=== PATIENT | female | born 1990 | race Caucasian/White ===

== ENCOUNTER 2018-09-07 14:45 | Emergency (ER) | payer OTHER ==
[2018-09-07 14:51] VITALS: BP 150/80; PULSE 111; TEMP 98.7; BMI 25.4
--- NOTE | 2018-09-07 14:51 | PDOC ---
Rapid Medical Evaluation Time Seen by Provider: 09/07/18 14:48 Medical Evaluation: 09/07/18 14:48 I have performed a brief in-person evaluation of this patient. The patient presents with a chief complaint of: 4wks vaginal bleeding with right pelvic pain. LMP 07/29 Pertinent physical exam findings: Abd SNTND. Hall Coordinator-deferred I have ordered the following: labs, urine, TVUS The patient will proceed to the ED for further evaluation. Discharge Disposition - Diagnosis Vaginal bleeding affecting early - Referrals Referrals: Marycarmen Lopez [Primary Care Provider] - - Patient Instructions - Post Discharge Activity
--- NOTE | 2018-09-07 15:20 | PDOC ---
History of Present Illness - General Chief Complaint: Vaginal Bleeding Stated Complaint: VAGINAL BLEEDING,4 WEEKS PREG Time Seen by Provider: 09/07/18 14:48 History Source: Patient Exam Limitations: No Limitations - History of Present Illness Travel History: No Initial Comments: 09/07/18 16:16 Patient came for evaluation of abdominal cramping 2 days and some vaginal bleeding that started this morning. States has gone through 2 small pads with bright red blood but denies any clots, any tissue-like substance. , States last menstrual periods July 29 and was confirmed 2 weeks ago.t had a visit . Denies fever, any problems with bowel, or bladder, is first preg and planned Timing/Duration: reports: getting worse Quality: reports: mild, moderate Abdominal Pain Onset Location: reports: suprapubic, generalized abdomen Pain Radiation: reports: no radiation Past History - Travel Traveled outside of the country in the last 30 days: No Close contact w/someone who was outside of country & ill: No - Past Medical History Allergies/Adverse Reactions: Allergies Allergy/AdvReac Type Severity Reaction Status Date / Time No Known Allergies Allergy Verified 09/07/18 14:51 Home Medications: Ambulatory Orders NK [No Known Home Medication] 09/07/18 COPD: No - Suicide/Smoking/Psychosocial Hx Smoking History: Never smoked Review of Systems - Review of Systems Able to Perform ROS?: Yes Is the patient limited Haitian proficient: Yes Constitutional: Yes: Symptoms Reported, See HPI, Malaise. No: Fever, Loss of Appetite HEENTM: Yes: See HPI. No: Symptoms Reported Respiratory: No: Symptoms reported Cardiac (ROS): No: Symptoms Reported ABD/GI: Yes: Symptoms Reported, Nausea, Abdominal cramping Integumentary: No: Symptoms Reported Neurological: Yes: Symptoms reported, See HPI All Other Systems: Reviewed and Negative *Physical Exam - Vital Signs Last Vital Signs Temp Pulse Resp BP Pulse Ox 98.7 F 111 H 18 150/80 99 09/07/18 14:49 09/07/18 14:49 09/07/18 14:49 09/07/18 14:49 09/07/18 14:49 - Physical Exam General Appearance: Yes: Nourished, Appropriately Dressed, Apparent Distress, Mild Distress HEENT: positive: KADY, Normal ENT Inspection, TMs Normal, Pharynx Normal, Rhinorrhea Neck: positive: Supple. negative: Tender Respiratory/Chest: positive: Lungs Clear, Normal Breath Sounds Gastrointestinal/Abdominal: positive: Tender, Soft. negative: Distended, Guarding, Rebound Musculoskeletal: positive: Normal Inspection. negative: CVA Tenderness Extremity: positive: Normal Capillary Refill, Normal Inspection, Normal Range of Motion Integumentary: positive: Dry, Warm, Pale Neurologic: positive: supervisor porcelain department II-XII NML intact, Fully Oriented, Alert, Normal Mood/ Affect, Normal Response, Motor Strength 5/5 Moderate Sedation - Procedure Monitoring Vital Signs: Procedure Monitoring Vital Signs Temperature 98.7 F 09/07/18 14:49 Pulse Rate 111 H 09/07/18 14:49 Respiratory Rate 18 09/07/18 14:49 Blood Pressure 150/80 09/07/18 14:49 O2 Sat by Pulse Oximetry (%) 99 09/07/18 14:49 ED Treatment Course - LABORATORY CBC & Chemistry Diagram: 09/07/18 15:32 09/07/18 15:32 Progress Note - Progress Note Progress Note: ultrasound does not reveal any uterine evidence of , no free flui, no fallopian tube or ovary is Beta hCG 42. Discussed with patient that either confirmed with reported blood work 3 weeks ago is now miscarried or test was inaccurate. Patient has appointment with plant guide tomorrow and will follow-upwith their recommendation *DC/Admit/Observation/Transfer Diagnosis at time of Disposition: Vaginal bleeding affecting early - Discharge Dispostion Disposition: HOME Condition at time of disposition: Stable Decision to Admit order: No - Referrals Referrals: Marycarmen Lopez [Primary Care Provider] - - Patient Instructions Printed Discharge Instructions: DI for Vaginal Bleeding Additional Instructions: Rest, drink lots of fluids: Teas, water, soups Tylenol for fever and pain you may need to have repeated labs an to verify any early Followup with private physician in one to 2 days as needed Return to emergency department for worsened symptoms, fevers, dehydration - Post Discharge Activity Forms/Work/School Notes: Back to Work
[2018-09-07 15:38] LABS: BASO % 0.3 % (0-2.0); EOS % 0.9 % (0-4.5); HEMATOCRIT 40.7 % (32.4-45.2); LYMPH % 24.6 % (8-40); MCH 29.1 pg (25.7-33.7); MCHC 31.9 g/dl (32.0-36.0); MONO % 5.4 % (3.8-10.2); NEUT % 68.8 % (42.8-82.8); PLATELET COUNT 314 K/MM3 (134-434); RBC 4.48 M/mm3 (3.60-5.2); RDW 13.7 % (11.6-15.6); WHITE BLOOD COUNT 9.9 K/mm3 (4.0-10.0)
[2018-09-07 15:40] LABS: URINE APPEARANCE CLOUDY; URINE BILIRUBIN NEGATIVE (<2.0 mg/dL); URINE COLOR YELLOW; URINE GLUCOSE (UA) NEGATIVE (NEGATIVE); URINE KETONE NEGATIVE (NEGATIVE); URINE LEUK ESTERASE NEGATIVE (NEGATIVE); URINE NITRITE NEGATIVE (NEGATIVE); URINE PROTEIN 1+ (NEGATIVE); URINE UROBILINOGEN NEGATIVE mg/dL (0.2-1.0)
[2018-09-07 15:46] LABS: EPI CELLS RARE /HPF (FEW); URINE MUCUS RARE
[2018-09-07 16:06] LABS: ANION GAP 5 MMOL/L (8-16); BLOOD UREA NITROGEN 11 mg/dL (7-18); CALCIUM 8.8 mg/dL (8.5-10.1); CHLORIDE 104 mmol/L (98-107); CO2 29 mmol/L (21-32); CREATININE 0.6 mg/dL (0.55-1.3); GLUCOSE,RANDOM 122 mg/dL (74-106); POTASSIUM 3.8 mmol/L (3.5-5.1); SODIUM 139 mmol/L (136-145)
== END 2018-09-07 16:53 | disposition home or self-care (01) ==
LOC: JER 14:45 → JERFT 14:45
DX: O26.891 Other specified pregnancy related conditions, first trimester (principal); O20.8 Other hemorrhage in early pregnancy; Z3A.01 Less than 8 weeks gestation of pregnancy
CPT/HCPCS: 36415; 76817-TC; 80048; 81003; 81015; 84702; 85025; 86850; 86900; 86901; 87086; 99282-25

== ENCOUNTER 2019-04-23 11:11 | Emergency (ER) | payer OTHER ==
[2019-04-23 11:18] VITALS: TEMP 98.5; BMI 27.3
[2019-04-23] MEDS ORDERED: ACETAMINOPHEN 500 MG TABLET (FP) PO ONE (11:46)
[2019-04-23] MEDS ORDERED: ACETAMINOPHEN 325 MG TABLET (FP) ONE (11:54)
[2019-04-23 12:31] LABS: BASO % 0.5 % (0-2.0); EOS % 0.4 % (0-4.5); HEMATOCRIT 36.4 % (32.4-45.2); HEMOGLOBIN 12.6 GM/dL (10.7-15.3); LYMPH % 19.5 % (8-40); MCH 30.9 pg (25.7-33.7); MCHC 34.5 g/dl (32.0-36.0); MEAN CELL VOLUME 89.4 fl (80-96); MEAN PLT VOLUME 7.2 fl (7.5-11.1); MONO % 4.5 % (3.8-10.2); NEUT % 75.1 % (42.8-82.8); RBC 4.07 M/mm3 (3.60-5.2); RDW 14.3 % (11.6-15.6); WHITE BLOOD COUNT 10.7 K/mm3 (4.0-10.0)
[2019-04-23 12:55] LABS: PLATELET COUNT 327 K/MM3 (134-434)
[2019-04-23 13:09] LABS: BILIRUBIN,TOTAL 0.5 mg/dL (0.2-1); BLOOD UREA NITROGEN 10.9 mg/dL (7-18); CALCIUM 8.8 mg/dL (8.5-10.1); CREATININE 0.6 mg/dL (0.55-1.3); POTASSIUM 3.9 mmol/L (3.5-5.1); TOT PROT 7.4 g/dl (6.4-8.2)
--- NOTE | 2019-04-23 13:10 | PDOC ---
History of Present Illness - General Chief Complaint: Pain Stated Complaint: ABD PAIN Time Seen by Provider: 04/23/19 11:34 History Source: Patient Exam Limitations: No Limitations - History of Present Illness Travel History: No Initial Comments: 04/23/19 12:10 28-year-old female approximately 6 weeks presents the ED with complaints of left lower abdominal pain over her ovary for the past 2 days without urinary complaints, fever, chills, nausea, back pain or vaginal discharge. Patient states has not seen AIR BRAKES INSPECTOR for this decided come to the ER today for further evaluation. Timing/Duration: reports: constant Quality: reports: moderate, cramping Abdominal Pain Onset Location: reports: suprapubic Pain Radiation: reports: no radiation Aggravating Factors: improves with: None Alleviating Factors: improves with: None Past History - Travel Traveled outside of the country in the last 30 days: No Close contact w/someone who was outside of country & ill: No - Past Medical History Allergies/Adverse Reactions: Allergies Allergy/AdvReac Type Severity Reaction Status Date / Time No Known Allergies Allergy Verified 04/23/19 11:18 Home Medications: Ambulatory Orders NK [No Known Home Medication] 09/07/18 COPD: No - Suicide/Smoking/Psychosocial Hx Smoking History: Never smoked Patient Lives Alone: No Lives with/in: spouse/SO Review of Systems - Review of Systems Able to Perform ROS?: Yes Constitutional: No: Symptoms Reported ABD/GI: Yes: Abdominal cramping : No: Symptoms Reported Musculoskeletal: No: Symptoms Reported Integumentary: No: Symptoms Reported Neurological: No: Headache Hematologic/Lymphatic: No: Symptoms Reported *Physical Exam - Vital Signs Last Vital Signs Temp Pulse Resp BP Pulse Ox 98.5 F 108 H 18 145/78 99 04/23/19 11:16 04/23/19 11:16 04/23/19 11:16 04/23/19 11:16 04/23/19 11:16 - Physical Exam General Appearance: Yes: Nourished, Appropriately Dressed. No: Apparent Distress Neck: positive: Normal Thyroid Respiratory/Chest: positive: Lungs Clear, Normal Breath Sounds. negative: Respiratory Distress, Accessory Muscle Use Cardiovascular: positive: Regular Rhythm, Tachycardia. negative: Murmur Female Pelvic Exam: positive: normal external exam, cervical os closed, adnexal tenderness (left). negative: CMT, discharge, vaginal bleeding Gastrointestinal/Abdominal: positive: Soft, Tenderness (left suprapubic) Musculoskeletal: negative: CVA Tenderness Extremity: positive: Normal Inspection Integumentary: positive: Normal Color, Warm, Moist Neurologic: positive: Motor Strength 5/5 (ambulatory) ED Treatment Course - LABORATORY CBC & Chemistry Diagram: 04/23/19 12:09 04/23/19 12:09 - ADDITIONAL ORDERS Additional order review: Laboratory Results 04/23/19 12:13 Urine Color Cancelled Urine Appearance Cancelled Urine pH Cancelled Ur Specific Excello Cancelled Urine Protein Cancelled Urine Glucose (UA) Cancelled Urine Ketones Cancelled Urine Blood Cancelled Urine Nitrite Cancelled Urine Bilirubin Cancelled Urine Urobilinogen Cancelled Ur Leukocyte Esterase Cancelled Urine WBC (Auto) Cancelled Urine RBC (Auto) Cancelled Urine Casts (Auto) Cancelled U Pathogenic Cast Auto Cancelled U Epithel Cells (Auto) Cancelled U Sm Round Cell (Auto) Cancelled Urine Crystals (Auto) Cancelled Urine Bacteria (Auto) Cancelled Urine Yeast (Auto) Cancelled Urine HCG, Qual Cancelled - Medications Given in the ED: ED Medications Discontinued Medications Generic Name Dose Route Start Last Admin Trade Name Freq PRN Reason Stop Dose Admin Acetaminophen 975 mg 04/23/19 11:46 04/23/19 11:54 Tylenol - PO 04/23/19 11:47 975 mg ONCE ONE Administration Medical Decision Making - Medical Decision Making 04/23/19 12:12 Chief complaint: Approximately 6 week female based on LMP and positive home test presents with left suprapubic pain for the past 2 days Exam: left adnexal and left suprapubic tenderness on exam. Slightly tachycardic no discharge or bleeding Plan: Labs, urine Tylenol and ultrasound ordered 04/23/19 13:13 Laboratory Tests 04/23/19 04/23/19 12:09 12:09 WBC 10.7 H Hgb 12.6 Hct 36.4 MPV 7.2 L Absolute Neuts (auto) 8.0 Neutrophils % 75.1 Sodium 137 Potassium 3.9 Chloride 106 Carbon Dioxide 25 Anion Gap 5 L BUN 10.9 Creatinine 0.6 Random Glucose 107 H AST 14 L ALT 17 Alkaline Phosphatase 76 Total Protein 7.4 Beta HCG, Quant 1553.2 04/23/19 13:47 Ultracet sounds shows no sonographic evidence of a viable intrauterine gestation. Patient with complex left adnexal mass suspicious for an ectopic . Free fluid in the pelvis noted. Patient placed in room 5 IV fluids ordered repeat vitals requested. AIR BRAKES INSPECTOR on- call to be notified by . preop labs also ordered in the event patient requires surgery versus medication. 04/23/19 14:18 Case discussed with corncob pipe manufacturing supervisor Dr. Reeves and will come to ED for consult. Repeat vitals stable 04/23/19 15:16 Patient seen by AIR BRAKES INSPECTOR who discussed in detail the possibility of ectopic versus small chance of IUP. Patient willing to take the risks and she is hoping for successful IUP . Patient understands the possibility of ectopic rupture and symptoms to look out for. Discussed with the patient is to return here in 2 days for repeat beta and ultrasound and will consult Dr. Reeves who will be available on Wednesday04/23/19 15:16 Selected Entries 04/23/19 13:48 Pulse Rate [ 80 Right Radial] Respiratory 18 Rate Blood Pressure 136/79 [Right Arm] O2 Sat by Pulse 100 Oximetry (%) *DC/Admit/Observation/Transfer Diagnosis at time of Disposition: Ectopic - Discharge Dispostion Disposition: HOME Condition at time of disposition: Fair - Referrals Referrals: Jesus Reeves MD [Staff Physician] - - Patient Instructions Printed Discharge Instructions: DI for Ectopic Additional Instructions: May take Tylenol only as needed for discomfort. You explained in detail the risks versus benefits of you going home with a likely ectopic . If you do understand to return here in 2 days for repeat blood work and/or ultrasound. You also understand if you develop any worsening abdominal pain, dizziness, weakness or heavy vaginal bleeding to return to the emergency room immediately as this may be a sign of a ruptured ectopic - Post Discharge Activity
[2019-04-23 13:13] LABS: EPI CELLS 1.9 /HPF (0-5/HPF); HYALINE CASTS 2 /lpf (0-8); PH,URINE 5.5 (5.0-8.0); URINE APPEARANCE CLEAR; URINE BACTERIA 82.1 /hpf (NEGATIVE); URINE BILIRUBIN NEGATIVE (NEGATIVE); URINE COLOR YELLOW; URINE GLUCOSE (UA) NEGATIVE (NEGATIVE); URINE KETONE NEGATIVE (NEGATIVE); URINE LEUK ESTERASE NEGATIVE (NEGATIVE); URINE NITRITE NEGATIVE (NEGATIVE); URINE PROTEIN NEGATIVE (NEGATIVE); URINE RBC 3 /hpf (0-4); URINE UROBILINOGEN 0.2 mg/dL (0.2-1.0); URINE WBC 3 /hpf (0-5)
[2019-04-23 14:51] LABS: INR 0.99 (0.83-1.09); PROTHROMBIN TIME (PATIENT) 11.7 SEC (9.7-13.0)
--- NOTE | 2019-04-23 15:06 | CONSULT ---
Consult Consult Specialty:: SAMPLE COLLECTOR Referred by:: ER Reason for Consultation:: Concern for ectopic - History of Present Illness Chief Complaint: Patient presenting for acute onset of abdominal pain in LLQ in early History of Present Illness: Patient evaluated at ER due to abdominal pain. Patient the pain is subsiding after tylenol. She reports minimal spotting. She reports feeling similar presentation approximately 2 years ago with a spontaneous Ab. She denies double vision, light headedness, CP, SOB, or syncopla/near syncopy episodes. This is a desired and partner present through out my evaluation. - History Source History Provided By: Patient Limitations to Obtaining History: No Limitations - Past Medical History TEST ENG: No: Alzheimer's, CVA, Dementia, Migraine, Multiple Sclerosis, Peripheral Neuropathy, Parkinson's, Seizure, Syncope, TIA, Vertigo, Other Pulmonary: No: Asthma, Bronchitis, Cancer, COPD, O2 Dependent, Pneumonia, Previously Intubated, Pulmonary Embolus, Pulmonary Fibrosis, Sleep Apnea, Other Gastrointestinal: No: Ascites, Cancer, Constipation, Crohn's Disease, Diverticulitis, Diverticulosis, Esophageal Varices, Gastritis, GERD, GI Bleed, Hemorrhoids, Hiatal Hernia, Inflamatory Bowel Disease, Irritable Bowel Disease, Pancreatitis, Peptic Ulcer Disease, Ulcerative Colitis, Other Hepatobiliary: No: Cirrhosis, Cholelithiasis, Cholecystitis, Choledocholithiasis , Hepatitis A, Hepatitis B, Hepatitis C, Other Renal/: No: Renal Failure, Renal Inusuff, BPH, Cancer, Hematuria, Hemodialysis , Neurogenic Bladder, Renal Calculi, UTI, Other Reproductive: No: Ectopic , Endometriosis, Fibroids, PID, Polycystic Ovary Syndrome, Postmenopausal, Other (she denies any SAMPLE COLLECTOR issues in the past including STIs) ...: Yes ...: 2 ...Para: 0 Infectious Disease: No: AIDS, C-Diff, Herpes Zoster, HIV, MRSA, STD's, Tuberculosis, VREF, Other Psych: No: Addictions, Anxiety, Bipolar, Depression, Panic, Psychosis, Schizophrenia, Other Musculoskeletal: No: Bursitis, Chronic low back pain, Hemiparesis, Hemiplegia, Osteoarthritis, Paraplegia, Other Rheumatology: No: Fibromyalgia, Gout, Lupus, Rheumatoid Arthritis, Sarcoidosis, Vasculitis, Other ENT: No: Allergic Rhinitis, Sinusitis, Other Endocrine: No: Somers's Disease, Maximilian's Disease, Diabetes Insipidus, Diabetes Mellitus, Hyperparathyroidism, Hyperthyroidism, Hypothyroidism, Osteopenia, SIADH, Other Dermatology: No: Basal Cell, Cellulitis, Eczema, Melanoma, Psoriasis, Squamous Cell, Other - Past Surgical History Past Surgical History: Yes: None - Alcohol/Substance Use Hx Alcohol Use: No - Smoking History Smoking history: Never smoked - Social History ADL: Independent Home Medications - Allergies Allergies/Adverse Reactions: Allergies Allergy/AdvReac Type Severity Reaction Status Date / Time No Known Allergies Allergy Verified 04/23/19 11:18 - Home Medications Home Medications: Ambulatory Orders NK [No Known Home Medication] 09/07/18 Family Disease History - Family Disease History Family History: Unremarkable (distant history of uterine cancer) Review of Systems Findings/Remarks: Pain significantly improved with tylenol. Patient was tearful during interview due to the possibility of it being an ectopic as it was planned. - Review of Systems Constitutional: reports: No Symptoms Eyes: reports: No Symptoms HENT: reports: No Symptoms Neck: reports: No Symptoms Cardiovascular: reports: No Symptoms Respiratory: reports: No Symptoms Gastrointestinal: reports: Abdominal Pain (LLQ) Genitourinary: reports: Vaginal Bleeding (mild pink spotting) Breasts: reports: No Symptoms Reported Musculoskeletal: reports: No Symptoms Integumentary: reports: No Symptoms Endocrine: reports: No Symptoms Hematology/Lymphatic: reports: No Symptoms Psychiatric: reports: No Symptoms Physical Exam Vital Signs: Vital Signs Temperature 98.5 F 04/23/19 11:16 Pulse Rate 80 04/23/19 13:48 Respiratory Rate 18 04/23/19 13:48 Blood Pressure 136/79 04/23/19 13:48 O2 Sat by Pulse Oximetry (%) 100 04/23/19 13:48 Constitutional: Yes: Well Nourished, No Distress, Anxious Eyes: Yes: WNL HENT: Yes: Atraumatic, Normocephalic Neck: Yes: Supple Cardiovascular: Yes: Regular Rate and Rhythm Respiratory: Yes: Regular Gastrointestinal: Yes: Normal Bowel Sounds, Soft (n/t, n/d, no guarding, no rebound) ...Rectal Exam: Yes: Deferred Renal/: Yes: WNL Breast(s): Yes: WNL, Other (deferred) Musculoskeletal: Yes: WNL Extremities: Yes: WNL Edema: No Integumentary: Yes: WNL Neurological: Yes: Alert, Oriented ...Motor Strength: WNL Psychiatric: Yes: Alert, Oriented Labs: CBC, BMP 04/23/19 12:09 04/23/19 12:09 beta 1553 T&S pending as per ED provider Imaging - Results Ultrasound: Report Reviewed, Image Reviewed (left complex adnexal mass suspicious for ectopic) Problem List - Problems (1) Early stage of Code(s): Z34.90 - ENCNTR FOR SUPRVSN OF NORMAL , UNSP, UNSP TRIMESTER Assessment/Plan 28 y/o presenting for evaluation of acute onset of abdominal pain in early . Labs and imaging reviewed. Ultrasound department reports discriminatory zone of 3000. Patient is in stable condition and pain improved, anxious as this is a desired . All possible diagnosis including high suspicion for ectopic (80% positive predictive value), threatened AB, and early IUP explained and all questions answered. Management option including medical treatment for presumptive ectopic and expectant management discussed. Their respective risks and complication explained at length including but not limited to ruptured ectopic requiring emergency surgical intervention and inadvertent affecting early IUP. Patient was accompanied by partner and they both expressed understanding, all their questions were answered. Patient desires expectant management and she will follow up in 2 days at fast track for repeat beta and evaluation. She understands the risk of this approach. Indications to return to ER for evaluation and plan of action discussed with patient, partner, and ER provider. They all report understanding in conjunction. -D/C home with return PRN precautions -F/U at fast track in 2 days, on wednesday for re-evaluation -F/U at [facility] later in the week -SAMPLE COLLECTOR service aware of patient -Approximately 30 minutes face to face counseling
[2019-04-23 15:48] VITALS: BP 130/78; PULSE 75
== END 2019-04-23 15:51 | disposition home or self-care (01) ==
LOC: JER 11:11
DX: O26.891 Other specified pregnancy related conditions, first trimester (principal); R10.32 Left lower quadrant pain; Z3A.00 Weeks of gestation of pregnancy not specified
CPT/HCPCS: 36415; 76817-TC; 80053; 81003; 84702; 85025; 85610; 86850; 86900; 86901; 87077; 87086; 99283-25

== ENCOUNTER 2019-04-24 01:36 | Emergency (ER) | payer OTHER ==
[2019-04-24 02:01] VITALS: BP 134/79; PULSE 100; BMI 60.8
--- NOTE | 2019-04-24 02:13 | PDOC ---
History of Present Illness - General Chief Complaint: Pain Stated Complaint: OVARIAN PAIN Time Seen by Provider: 04/24/19 02:03 - History of Present Illness Initial Comments: 04/24/19 02:08 28 yo , unknown gestational age, who p/w LLQ abdominal pain early . Recently seen [facility] (04/23/19) with high suspicion ectopic . (04/23/19) TVUS with complex left adenexal mass suspicious for ectopic , free pelivc fluid, and no evidence of IUP. HCG 1553 (04/23/19). Patient reports, campy LLQ pain persistent, but improved over past two days. No identifiable triggers or alleviators. Denies pelvic pain, vaginal bleeding. Patient denies WILCOX, vision change, palpitations, cough, wheezing, orthopena, PND , leg swelling/pain, N/V, F,C, CP, SOB, urinary complaints, vaginal discharge, hematuria, BPR, diarrhea, constipation, lightheadedness, weakness, sensory changes. PMHx: as noted above ROS: as noted SHx: Denies Etoh, IVDA, tobacco use Allergies: NKDA Sack Department Supervisor: Dr. Pineda Past History - Past Medical History Allergies/Adverse Reactions: Allergies Allergy/AdvReac Type Severity Reaction Status Date / Time No Known Allergies Allergy Verified 04/23/19 11:18 Home Medications: Ambulatory Orders Nitrofurantoin Monohyd/M-Cryst [Macrobid -] 100 mg PO BID #14 capsule 04/24/19 COPD: No - Immunization History Immunization Up to Date: Yes - Suicide/Smoking/Psychosocial Hx Smoking History: Never smoked Hx Alcohol Use: No Review of Systems - Review of Systems Comments:: 04/24/19 02:12 GENERAL/CONSTITUTIONAL: No fever or chills. No weakness. HEAD, EYES, EARS, NOSE AND THROAT: No change in vision. No ear pain or discharge. No sore throat. CARDIOVASCULAR: No chest pain or shortness of breath RESPIRATORY: No cough, wheezing, or hemoptysis. GASTROINTESTINAL: + Abdominal pain. No nausea, vomiting, diarrhea or constipation. GENITOURINARY: No dysuria, frequency, or change in urination. MUSCULOSKELETAL: No joint or muscle swelling or pain. No neck or back pain. SKIN: No rash NEUROLOGIC: No headache, vertigo, loss of consciousness, or change in strength/ sensation. ENDOCRINE: No increased thirst. No abnormal weight change HEMATOLOGIC/LYMPHATIC: No anemia, easy bleeding, or history of blood clots. ALLERGIC/IMMUNOLOGIC: No hives or skin allergy. *Physical Exam - Vital Signs Last Vital Signs Temp Pulse Resp BP Pulse Ox 98.3 F 100 H 18 134/79 98 04/24/19 02:00 04/24/19 01:53 04/24/19 01:53 04/24/19 01:53 04/24/19 02:00 - Physical Exam Comments: 04/24/19 02:13 GENERAL: Awake, alert, and fully oriented, in no acute distress HEAD: No signs of trauma, normocephalic, atraumatic EYES: PERRLA, EOMI, sclera anicteric, conjunctiva clear ENT: Auricles normal inspection, hearing grossly normal, nares patent, oropharynx clear without exudates. Moist mucosa NECK: Normal ROM, supple, no lymphadenopathy, JVD, or masses LUNGS: No distress, speaks full sentences, clear to auscultation bilaterally HEART: Regular rate and rhythm, normal S1 and S2, no murmurs, rubs or gallops, peripheral pulses normal and equal bilaterally. ABDOMEN: Soft, nontender, normoactive bowel sounds. No guarding, no rebound. No masses EXTREMITIES : Normal inspection, Normal range of motion, no edema. No clubbing or cyanosis. NEUROLOGICAL: Cranial nerves II through XII grossly intact. Normal speech, normal gait, no focal sensorimotor deficits SKIN: Warm, Dry, normal turgor, no rashes or lesions noted ED Treatment Course - LABORATORY CBC & Chemistry Diagram: 04/24/19 02:00 04/24/19 02:00 Medical Decision Making - Medical Decision Making 04/24/19 02:13 28 yo , unknown gestational age, who p/w LLQ abdominal pain early .HR 100, vitals otherwise wnl, AF, A&Ox3. Physical exam unremarkable. Will asses for viable IUP vs. ectopic , threatened . DDx colitis, appendicitis, cystitis, nephrolithiaisis, ovarian or uterine pathology. 04/24/19 02:39 ED Course: 04/24/19 05:27 Laboratory Tests 04/24/19 04/24/19 04/24/19 02:00 02:00 02:00 WBC 11.4 H Hgb 12.1 Hct 36.3 Plt Count 288 BUN 11.4 Creatinine 0.7 Urine Color Yellow Ur Leukocyte Esterase 1+ H Urine WBC (Auto) 11 Urine RBC (Auto) 6 Urine Bacteria (Auto) 176.8 Urine HCG, Qual Positive Macrobid in ED and sent to pharmacy Stable for d/c with return precautions advised to return for serial HCG and TVUS testing *DC/Admit/Observation/Transfer Diagnosis at time of Disposition: Abdominal pain affecting - Discharge Dispostion Condition at time of disposition: Stable Decision to Admit order: No - Prescriptions Prescriptions: Nitrofurantoin Monohyd/M-Cryst [Macrobid -] 100 mg PO BID #14 capsule - Referrals Referrals: Altagracia Scott MD [Primary Care Provider] - - Patient Instructions Printed Discharge Instructions: DI for Abdominal Pain -- Early Additional Instructions: Please return to the emergency department with any new or worsening symptoms or concerns such as but not limited to vaginal bleeding/discharge, lightheadedness , severe abdominal pain. Please follow up with your seaman and/or primary care physician within 72 hours. Please return to ED fast track ( 04/25/19) for repeat ultrasound testing and HCG/blood testing. - Post Discharge Activity
[2019-04-24 02:20] LABS: BASO % 0.7 % (0-2.0); EOS % 1.1 % (0-4.5); HEMATOCRIT 36.3 % (32.4-45.2); HEMOGLOBIN 12.1 GM/dL (10.7-15.3); LYMPH % 29.6 % (8-40); MCH 30.3 pg (25.7-33.7); MCHC 33.4 g/dl (32.0-36.0); MEAN CELL VOLUME 90.8 fl (80-96); MEAN PLT VOLUME 7.2 fl (7.5-11.1); MONO % 4.8 % (3.8-10.2); NEUT % 63.8 % (42.8-82.8); PLATELET COUNT 288 K/MM3 (134-434); RDW 14.4 % (11.6-15.6); WHITE BLOOD COUNT 11.4 K/mm3 (4.0-10.0)
[2019-04-24 02:31] LABS: HCG,QUALITATIVE URINE Positive
[2019-04-24 02:35] LABS: EPI CELLS 4.8 /HPF (0-5/HPF); HYALINE CASTS 1 /lpf (0-8); URINE APPEARANCE CLEAR; URINE BACTERIA 176.8 /hpf (NEGATIVE); URINE BILIRUBIN NEGATIVE (NEGATIVE); URINE COLOR YELLOW; URINE GLUCOSE (UA) NEGATIVE (NEGATIVE); URINE KETONE NEGATIVE (NEGATIVE); URINE LEUK ESTERASE 1+ (NEGATIVE); URINE NITRITE NEGATIVE (NEGATIVE); URINE PROTEIN NEGATIVE (NEGATIVE); URINE RBC 6 /hpf (0-4); URINE UROBILINOGEN 0.2 mg/dL (0.2-1.0); URINE WBC 11 /hpf (0-5)
[2019-04-24] MEDS ORDERED: ACETAMINOPHEN 1000 MG/100 ML VIAL (NON FORMULARY) IVPB ONE (02:38)
[2019-04-24 02:40] LABS: INR 0.97 (0.83-1.09); PROTHROMBIN TIME (PATIENT) 11.4 SEC (9.7-13.0)
[2019-04-24] MEDS ORDERED: ACETAMINOPHEN INJECTION 100 ML IVPB ONE (02:47)
[2019-04-24 02:48] VITALS: TEMP 98.3
[2019-04-24 02:49] LABS: ALBUMIN 3.7 g/dl (3.4-5.0); BILIRUBIN,TOTAL 0.3 mg/dL (0.2-1); BLOOD UREA NITROGEN 11.4 mg/dL (7-18); CALCIUM 8.4 mg/dL (8.5-10.1); CREATININE 0.7 mg/dL (0.55-1.3); TOT PROT 7.2 g/dl (6.4-8.2)
[2019-04-24] MEDS ORDERED: NITROFURANTOIN MACROCRYSTAL 50 MG CAPSULE (FP) PO ONE (05:24)
--- NOTE | 2019-04-24 05:27 | PDOC ---
Attending Attestation - Resident Resident Name: Issac Duval - ED Attending Attestation I have performed the following: I have examined & evaluated the patient, The case was reviewed & discussed with the resident, I agree w/resident's findings & plan - HPI HPI: 04/24/19 05:26 Pt is ; she was supposed to follow with TUBE PUSHER next wednesday. - Physicial Exam PE: 04/24/19 05:27 Agree with resident exam
== END 2019-04-24 05:44 | disposition home or self-care (01) ==
LOC: JER 01:36
PROC: 3E033NZ Introduction of Analgesics, Hypnotics, Sedatives into Peripheral Vein, Percutaneous Approach (ICD-10-PCS; principal; 2019-04-24)
DX: O26.91 Pregnancy related conditions, unspecified, first trimester (principal); R10.32 Left lower quadrant pain; Z3A.01 Less than 8 weeks gestation of pregnancy
CPT/HCPCS: 36415; 80053; 81003; 84702; 84703; 85025; 85610; 87077; 87086; 96374; 99283-25; J0131

== ENCOUNTER 2019-04-25 10:14 | Emergency (ER) | payer OTHER ==
[2019-04-25 10:21] VITALS: BP 147/81; PULSE 101; TEMP 99; BMI 27.3
--- NOTE | 2019-04-25 10:32 | PDOC ---
History of Present Illness - General Chief Complaint: BHCG Stated Complaint: BLOOD WORK Time Seen by Provider: 04/25/19 10:23 History Source: Patient Exam Limitations: No Limitations Past History - Past Medical History Allergies/Adverse Reactions: Allergies Allergy/AdvReac Type Severity Reaction Status Date / Time No Known Allergies Allergy Verified 04/25/19 10:19 Home Medications: Ambulatory Orders Nitrofurantoin Monohyd/M-Cryst [Macrobid -] 100 mg PO BID #14 capsule 04/24/19 COPD: No - Immunization History Immunization Up to Date: Yes - Suicide/Smoking/Psychosocial Hx Smoking History: Never smoked Information on smoking cessation initiated: No Hx Alcohol Use: No Drug/Substance Use Hx: No *Physical Exam - Vital Signs Last Vital Signs Temp Pulse Resp BP Pulse Ox 99.0 F 101 H 18 147/81 100 04/25/19 10:19 04/25/19 10:19 04/25/19 10:19 04/25/19 10:19 04/25/19 10:19 - Physical Exam General Appearance: No: Apparent Distress Respiratory/Chest: positive: Lungs Clear, Normal Breath Sounds. negative: Respiratory Distress Cardiovascular: positive: Regular Rhythm, Regular Rate, S1, S2. negative: Murmur Gastrointestinal/Abdominal: positive: Normal Bowel Sounds, Soft. negative: Tender, Distended, Guarding, Rebound Neurologic: positive: Alert, Normal Mood/Affect ED Treatment Course - RADIOLOGY Radiology Studies Ordered: Category Date Time Status TRANSVAGINAL US PREG [US] Stat Ultrasound 04/25/19 10:25 Ordered Medical Decision Making - Medical Decision Making 28 y/o F (hx of 1 miscarriage 7 months ago), currently 6 weeks , presents for follow-up for possible ectopic . Patient was seen in ED 2 days by RECORD SYSTEMS ANALYST DR. Reeves as her pelvic ultrasound showed left adnexal mass, raising concern for possible ectopic and no evidence of IUP. Patient was advised to return in 2 days for repeat Bhcg and pelvic ultrasound. Patient currently denies and abdominal/pelvic pain. Had some spotting yesterday but denies having any bleeding currently. Denies fever, sob, cp, n/v. Plan: Bhcg, pelvic ultrasound Will discuss with Dr. Reeves 04/25/19 10:30 Laboratory Tests 04/23/19 04/24/19 04/25/19 12:09 05:26 10:36 Beta HCG, Quant 1553.2 1276.2 > 1000.0 Beta hcg down trending Repeat pelvic ultrasound again shows no evidence of IUP, L adnexal mass again noted D/W Dr. Reeves - states unclear if this is miscarriage or possible self- resolving ectopic ; states patient is to follow-up with him in 2 days for further evaluation 04/25/19 13:20 *DC/Admit/Observation/Transfer Diagnosis at time of Disposition: and not yet delivered Qualifiers: Trimester: first trimester Qualified Code(s): Z34.91 - Encounter for supervision of normal , unspecified, first trimester - Discharge Dispostion Disposition: HOME Condition at time of disposition: Stable Decision to Admit order: No - Referrals Referrals: Marycarmen Lopez [Primary Care Provider] - Jesus Revees MD [Staff Physician] - 04/27/19 - Patient Instructions Additional Instructions: Thank you for choosing [facility]. It was a pleasure taking care of you. Your levels are going down It is possible you are having miscarriage However, you will need to follow-up with Dr. Reeves in 2 days for further evaluation Return to the Emergency Department if your symptoms worsen or persist, severe abdominal pain or heavy vaginal bleeding or other concerning symptoms. - Post Discharge Activity
== END 2019-04-25 13:35 | disposition home or self-care (01) ==
LOC: JERFT 10:14
DX: O26.891 Other specified pregnancy related conditions, first trimester (principal); R19.04 Left lower quadrant abdominal swelling, mass and lump; Z3A.01 Less than 8 weeks gestation of pregnancy
CPT/HCPCS: 36415; 76817-TC; 84702; 99281-25

== ENCOUNTER 2019-04-27 17:32 | Emergency (ER) | payer OTHER ==
[2019-04-27 17:37] VITALS: BP 133/79; PULSE 96; TEMP 99; BMI 27.3
--- NOTE | 2019-04-27 17:38 | PDOC ---
Rapid Medical Evaluation Chief Complaint: Pain Time Seen by Provider: 04/27/19 17:34 Medical Evaluation: Allergies Allergy/AdvReac Type Severity Reaction Status Date / Time No Known Allergies Allergy Verified 04/25/19 10:19 04/27/19 17:35 I have performed a brief in-person evaluation of this patient. The patient presents with a chief complaint of: here for methotrexate administration . Pertinent physical exam findings: sent from Dr Betancur I have ordered the following: [facility] [place] The patient will proceed to the ED for further evaluation. Discharge Disposition - Diagnosis Abdominal pain - Referrals - Patient Instructions - Post Discharge Activity
[2019-04-27] MEDS ORDERED: METHOTREXATE SODIUM/PF 25 MG/ML VIAL IM ONE (18:03)
--- NOTE | 2019-04-27 18:17 | PDOC ---
History of Present Illness - General Chief Complaint: Vaginal Bleeding Stated Complaint: , SENT BY PMD Time Seen by Provider: 04/27/19 17:34 History Source: Patient Exam Limitations: Clinical Condition - History of Present Illness Initial Comments: 04/27/19 18:23 Patient with no medical history sent in by ORTHOPEDIC TECH doctor Jesus Reeves for repeat beta hCG and methotrexate status post patient presented 5 days ago with vaginal bleeding and found to have positive with no viable IUP and left adnexal mass. Repeat ultrasound two-day apart shows persistent left adnexal mass which is unchanged with trending down beta hCG. Beta hCG done 4 days ago was 1553, repeat beta hCG denies day was 1276 and beta hCG 2 days ago was 1000. Called in by ORTHOPEDIC TECH Dr Reeves who saw pt today in the office to give methotrexate given persistent left adnexal mass a been with trending down beta hCG. Dr. Reeves indicated to give patient methotrexate due to concern for adnexa mass being ectopic and follow-up back with him in the clinic in 4 days. Patient reported vaginal bleeding using one pad per day with intermittent cramping abdominal pain. Denies abdominal pain now. Denies nausea, vomiting, fever or chills. Denies any other symptoms Timing/Duration: other (5 days) Past History - Past Medical History Allergies/Adverse Reactions: Allergies Allergy/AdvReac Type Severity Reaction Status Date / Time No Known Allergies Allergy Verified 04/27/19 17:37 Home Medications: Ambulatory Orders Nitrofurantoin Monohyd/M-Cryst [Macrobid -] 100 mg PO BID #14 capsule 04/24/19 COPD: No - Reproductive History (#): 2 Para: 0 Therapeutic (s) & number: No Spontaneous : 1 - Immunization History Immunization Up to Date: Yes - Suicide/Smoking/Psychosocial Hx Smoking History: Never smoked Hx Alcohol Use: No Drug/Substance Use Hx: No Review of Systems - Review of Systems Able to Perform ROS?: Yes Is the patient limited Malay proficient: No Constitutional: No: Chills, Fever, Malaise HEENTM: No: Symptoms Reported Respiratory: No: Symptoms reported Cardiac (ROS): No: Symptoms Reported ABD/GI: No: Symptoms Reported, Nausea, Vomiting, Abdominal cramping : Yes: Other (vaginanl bleeding). No: Symptoms Reported, Dysuria, Discharge, Frequency Integumentary: No: Symptoms Reported Neurological: No: Symptoms reported, Dizziness All Other Systems: Reviewed and Negative *Physical Exam - Vital Signs Last Vital Signs Temp Pulse Resp BP Pulse Ox 99 F 96 H 19 133/79 100 04/27/19 17:35 04/27/19 17:35 04/27/19 17:35 04/27/19 17:35 04/27/19 17:35 - Physical Exam General Appearance: Yes: Nourished, Appropriately Dressed. No: Apparent Distress HEENT: positive: Normal ENT Inspection Neck: positive: Supple Respiratory/Chest: positive: Normal Breath Sounds, Respiratory Distress, Accessory Muscle Use Cardiovascular: positive: Regular Rhythm, Regular Rate Female Pelvic Exam: positive: normal external exam, cervical os closed. negative: vaginal bleeding Musculoskeletal: positive: Normal Inspection. negative: CVA Tenderness Extremity: positive: Normal Inspection Integumentary: positive: Normal Color Neurologic: positive: Fully Oriented, Alert, Normal Response ED Treatment Course - LABORATORY CBC & Chemistry Diagram: 04/27/19 18:00 Medical Decision Making - Medical Decision Making 04/27/19 18:29 Patient with no medical history sent in by ORTHOPEDIC TECH doctor Jesus Reeves for repeat beta hCG and methotrexate status post patient presented 5 days ago with vaginal bleeding and found to have positive with no viable IUP and left adnexal mass. Repeat ultrasound two-day apart shows persistent left adnexal mass which is unchanged with trending down beta hCG. Beta hCG done 4 days ago was 1553, repeat beta hCG denies day was 1276 and beta hCG 2 days ago was 1000. Called in by ORTHOPEDIC TECH Dr Reeves who saw pt today in the office to give methotrexate given persistent left adnexal mass a been with trending down beta hCG. Dr. Reeves indicated to give patient methotrexate due to concern for adnexa mass being ectopic and follow-up back with him in the clinic in 4 days. Patient reported vaginal bleeding using one pad per day with intermittent cramping abdominal pain. Denies abdominal pain now. Denies nausea, vomiting, fever or chills. Denies any other symptoms. Patient fully aware of treatment as it was discussed with her by Dr. Reeves LFTs, PT/PTT, beta hcg labs ordered. MTX to be given after labs. pt RH: 0+ 04/27/19 19:24 bETA HCG is 405. Given significantly dropped beta hcg level, will hold off on MTX as symptoms is likely blighted ovum than ectopic. Called Dr. Reeves and explained results to him and agrees to hold of MTX treatment and patient will follow-up with him in the clinic in 4 days. Report patient already given precautions which again given to patient before d/c. Patient agrees with plan to hold off treatment and watch with serial HCG and f/u with Dr. Reeves. Patient stable for discharge *DC/Admit/Observation/Transfer Diagnosis at time of Disposition: Blighted ovum and not yet delivered Qualifiers: Trimester: first trimester Qualified Code(s): Z34.91 - Encounter for supervision of normal , unspecified, first trimester - Discharge Dispostion Disposition: HOME Condition at time of disposition: Stable Decision to Admit order: No - Referrals Referrals: Jesus Reeves MD [Staff Physician] - - Patient Instructions Printed Discharge Instructions: DI for Ectopic Additional Instructions: Come back to ED if worsening abdominal pains with vaginal bleeding. Follow-up with Dr. Reeves as scheduled on WEDNESDAY - Post Discharge Activity
[2019-04-27 18:44] LABS: BILIRUBIN,TOTAL 0.3 mg/dL (0.2-1); BLOOD UREA NITROGEN 7.9 mg/dL (7-18); CALCIUM 8.9 mg/dL (8.5-10.1); CREATININE 0.8 mg/dL (0.55-1.3); POTASSIUM 3.9 mmol/L (3.5-5.1); TOT PROT 7.7 g/dl (6.4-8.2)
[2019-04-27 19:12] LABS: INR 0.97 (0.83-1.09); PROTHROMBIN TIME (PATIENT) 11.4 SEC (9.7-13.0)
== END 2019-04-27 19:30 | disposition home or self-care (01) ==
LOC: JERFT 17:32 → JER 17:32 → JERFT 19:30
DX: O26.891 Other specified pregnancy related conditions, first trimester (principal); O02.0 Blighted ovum and nonhydatidiform mole; Z3A.01 Less than 8 weeks gestation of pregnancy
CPT/HCPCS: 36415; 80053; 84702; 85610; 85730; 99282-25

== ENCOUNTER 2019-10-08 18:00 | Emergency (ER) | payer OTHER ==
[2019-10-08 18:05] VITALS: BMI 28.1
--- NOTE | 2019-10-08 21:42 | PDOC ---
History of Present Illness - General Chief Complaint: Vaginal Bleeding Stated Complaint: VAGINAL BLEEDING Time Seen by Provider: 10/08/19 20:51 History Source: Patient Exam Limitations: No Limitations - History of Present Illness Initial Comments: 29 y/o A2 at 9 weeks , presents to the ED c/o of vagina bleed of 1 day duration began this afternoon. Pt reports the bleeding minimal and only present when she wipes. She reports no pain or cramping with the bleed. She reports no dysuria or discharge with the bleed. She has had similar but much more profuse bleeds in the past prior to her 2 miscarriages. She follows up with her material planning analyst Dr. Jesus Reeves, and her visit and all subsequent visits have been normal as per pt. Pt was seen on september 14 2019 at [facility] , during which an Transvaginal US showed small subchorionic bleed. Currently, pt denies f/c/n/v/d/sob/chest pain, abdominal pain, dysuria, discharge. 10/08/19 21:36 Associated Symptoms: reports: denies symptoms. denies: chest pain, cough, diaphoresis, fever/chills, headaches, nausea/vomiting, shortness of breath Past History - Travel Traveled outside of the country in the last 30 days: No Close contact w/someone who was outside of country & ill: No - Past Medical History Allergies/Adverse Reactions: Allergies Allergy/AdvReac Type Severity Reaction Status Date / Time No Known Allergies Allergy Verified 10/08/19 18:05 Home Medications: Ambulatory Orders Nitrofurantoin Monohyd/M-Cryst [Macrobid -] 100 mg PO BID #14 capsule 04/24/19 COPD: No - Reproductive History (#): 2 Para: 0 Ectopic : Yes Therapeutic (s) & number: No Spontaneous : 1 - Immunization History Immunization Up to Date: Yes - Psycho Social/Smoking Cessation Hx Smoking History: Never smoked Hx Alcohol Use: No Drug/Substance Use Hx: No Review of Systems - Review of Systems Able to Perform ROS?: Yes Is the patient limited Vincentian proficient: No Constitutional: Yes: Symptoms Reported, Weight Stable. No: Chills, Fever, Loss of Appetite HEENTM: Yes: Symptoms Reported. No: Blurred Vision, Tearing Respiratory: Yes: Symptoms reported. No: Cough, Orthopnea, Shortness of Breath , Wheezing, Productive cough Cardiac (ROS): Yes: Symptoms Reported. No: Chest Pain, Chest Tightness ABD/GI: Yes: Symptoms Reported. No: Abdominal Distended, Constipated, Diarrhea , Nausea, Vomiting : Yes: Symptoms Reported. No: Burning, Dysuria, Discharge, Hematuria ( vaginal bleeding ), Pain Neurological: No: Headache, Numbness *Physical Exam - Vital Signs Last Vital Signs Temp Pulse Resp BP Pulse Ox 97 F L 108 H 18 145/85 99 10/08/19 18:03 10/08/19 18:03 10/08/19 18:03 10/08/19 18:03 10/08/19 18:03 - Physical Exam General Appearance: Yes: Nourished, Appropriately Dressed HEENT: positive: EOMI, KADY, Normal ENT Inspection, Pharynx Normal Neck: positive: Trachea midline, Normal Thyroid, Supple Respiratory/Chest: positive: Lungs Clear, Normal Breath Sounds Cardiovascular: positive: Regular Rhythm, Regular Rate, S1, S2. negative: Murmur, Gallop/S3, Gallop/S4 Vascular Pulses: Dorsalis-Pedis (R): 2+, Doralis-Pedis (L): 2+ Female Pelvic Exam: positive: cervical os closed, vaginal bleeding. negative: discharge, Bartholin mass, adnexal tenderness Gastrointestinal/Abdominal: positive: Normal Bowel Sounds, Soft. negative: Distended, Guarding, Rebound Extremity: positive: Normal Inspection, Normal Range of Motion Neurologic: positive: Fully Oriented, Alert, Normal Mood/Affect ED Treatment Course - LABORATORY CBC & Chemistry Diagram: 10/08/19 21:35 Medical Decision Making - Medical Decision Making 29 y/o A2 at 9 weeks , presents to the ED c/o of vagina bleed of 1 day duration began this afternoon #Vaginal bleed PE shows OS closed, appears to be intact minimal bleed in the vault will obtain a Transvaginal US CBC, HCG levels to obtain UA to check for UTI Urine GC amplification BP elevated- will r/p BP educated the pt on importance of INTERIOR DESIGN INSTRUCTOR follow up 10/08/19 21:47 Discharge - Discharge Information Problems reviewed: Yes Clinical Impression/Diagnosis: Vaginal bleeding, Vaginal bleeding affecting early Condition: Improved Disposition: HOME - Admission No - Follow up/Referral - Patient Discharge Instructions Patient Printed Discharge Instructions: DI for Vaginal Bleeding During Additional Instructions: You were seen in the emergency room for vaginal bleeding While in the emergency room, we evaluated you with lab work, blood work, beta- HCG levels to check for your , and imaging including an Ultrasound of your uterus. We found that your vaginal bleeding was minimal and may or may not be related to your . On Ultrasound of your uterus there were some abnormal findings. However, it is too early to make a conclusion on the status of your . It is important that you follow up with your RN HOSPITAL physician within 2 days to confirm the status of your or return to the emergency room to repeat your Ultrasound and Beta-Hcg levels. Please follow up with your RN HOSPITAL physician within 2 days Please follow up with your primary care physician within 1 week Return to the emergency room, if you experience worsening of your symptoms, vaginal bleeding, pain, discharge from the vagina or any worsening of your condition. Te vieron en la mina de emergencias por sangrado vaginal Mientras estaba en la mina de emergencias, lo evaluamos con anlisis de laboratorio, anlisis de leodan, niveles de beta-HCG para verificar rivera embarazo e imgenes, incluido un ultrasonido de rivera tero. Descubrimos que rivera sangrado vaginal fue mnimo y puede o no estar relacionado con rivera embarazo. En la ecografa de rivera tero hubo algunos hallazgos anormales. Sin embargo, es demasiado pronto para llegar a peter conclusin sobre el estado de rivera embarazo. Es importante que galina un seguimiento con rivera mdico obstetra / gineclogo dentro de los 2 bernstein para confirmar el estado de rivera embarazo o regresar a la mina de emergencias para repetir ruma niveles de ultrasonido y beta-Hcg. Galina un seguimiento con rivera mdico obstetra / gineclogo dentro de los 2 bernstein Galina un seguimiento con rivera mdico de atencin primaria dentro de 1 semana Regrese a la mina de emergencias, si experimenta un empeoramiento de ruma sntomas, sangrado vaginal, dolor, secrecin de la vagina o cualquier empeoramiento de rivera condicin. - Post Discharge Activity
[2019-10-08 21:56] LABS: BASO % 0.4 % (0-2.0); EOS % 0.8 % (0-4.5); HEMATOCRIT 40.7 % (32.4-45.2); HEMOGLOBIN 13.3 GM/dL (10.7-15.3); MCH 30.1 pg (25.7-33.7); MCHC 32.7 g/dl (32.0-36.0); MEAN CELL VOLUME 91.8 fl (80-96); MONO % 4.8 % (3.8-10.2); PLATELET COUNT 344 K/MM3 (134-434); RBC 4.44 M/mm3 (3.60-5.2); WHITE BLOOD COUNT 12.5 K/mm3 (4.0-10.0)
[2019-10-08 21:59] LABS: EPI CELLS 3.6 /HPF (0-5/HPF); HYALINE CASTS 3 /lpf (0-8); URINE APPEARANCE CLEAR; URINE BACTERIA 44.4 /hpf (NEGATIVE); URINE BILIRUBIN NEGATIVE (NEGATIVE); URINE COLOR YELLOW; URINE GLUCOSE (UA) NEGATIVE (NEGATIVE); URINE KETONE NEGATIVE (NEGATIVE); URINE LEUK ESTERASE TRACE (NEGATIVE); URINE NITRITE NEGATIVE (NEGATIVE); URINE PROTEIN NEGATIVE (NEGATIVE); URINE RBC 26 /hpf (0-4); URINE UROBILINOGEN 0.2 mg/dL (0.2-1.0); URINE WBC 7 /hpf (0-5)
--- NOTE | 2019-10-08 23:14 | PDOC ---
Documentation entered by Theresa Springer SCRIBE, acting as scribe for Nir Taylor MD. Nir Taylor MD: This documentation has been prepared by the scribe, Theresa Springer SCRIBE, under my direction and personally reviewed by me in its entirety. I confirm that the documentation accurately reflects all work, treatment, procedures, and medical decision making performed by me. Attending Attestation - Resident Resident Name: Tesfaye Landa - ED Attending Attestation I have performed the following: I have examined & evaluated the patient, The case was reviewed & discussed with the resident, I agree w/resident's findings & plan, Exceptions are as noted - HPI HPI: 10/08/19 21:38 The patient is a 29-year-old female, A2 (2 miscarriages), currently 9 wks with no reported past medical history who presents to the emergency department with vaginal bleeding since today. The patient reports she noticed blood on the tissue when wiping. Denies back pain, abdominal pain/cramping, fever, chills, headache, lightheadedness, chest pain, SOB. The patient reports she is GBS positive. Allergies: NKA Social history: Denies history of tobacco, alcohol or recreational drug use. WALLPAPER EMBOSSER HELPER: Dr. Reeves ([address] - Physicial Exam PE: 10/08/19 21:39 GENERAL: The patient is awake, alert, and fully oriented, Nontoxic - in no acute distress. LUNGS: Breath sounds equal, clear to auscultation bilaterally. No wheezes, no crackles, no rales. HEART: Regular rate and rhythm, normal S1 and S2 without murmur, rub or gallop. ABDOMEN: Soft, nontender, normoactive bowel sounds. No guarding, no rebound. No masses. - Medical Decision Making 10/08/19 21:20 29y F A2 at 9 weeks by dates presents with vaginal bleding for seveal hours , is scant without associtaed vag d/c, abd pain, n/v, fever/chills. exam unremarkable will obtin labs, ua, gc, beta wlll obtain abd US to eval for IUP and viability 10/09/19 01:16 EXAM: TRANSVAGINAL US PREG FINDINGS: Prior scans not transmitted. ct mri technologist states that previous ultrasound showed intrauterine gestation of 6 weeks and 1 day. There is an enlarged irregular intrauterine gestational sac measuring 4.4 cm x 1.6 cm x 4.4 cm. No pole or yolk sac is identified. Failed gestation is suspected especially if there was an intrauterine gestation documented previously. Normal right ovary with positive Doppler blood flow. Normal left ovary with positive Doppler blood flow. THIS DOCUMENT HAS BEEN ELECTRONICALLY SIGNED Sánchez Hurd MD 10/09/2019 00:22 EST
[2019-10-09 04:48] VITALS: BP 138/82; PULSE 96; TEMP 99.6
== END 2019-10-09 04:56 | disposition home or self-care (01) ==
LOC: JER 18:00
DX: O26.891 Other specified pregnancy related conditions, first trimester (principal); O20.8 Other hemorrhage in early pregnancy; Z3A.01 Less than 8 weeks gestation of pregnancy
CPT/HCPCS: 36415; 76817-TC; 81003; 84702; 85025; 86850; 86900; 86901; 87491; 87591; 99283-25